=== PATIENT | female | born 1960 | race Caucasian/White ===

== ENCOUNTER 2023-11-05 14:18 | Inpatient (IN) | payer BC, SELFPAY ==
[2023-11-05] VITALS (10 sets, daily range): BP systolic 102–133; BP diastolic 56–77
--- NOTE | 2023-11-05 12:57 | ED.GENMED ---
History of Present Illness
<Kamille Yeh PA-C - Last Filed: 11/05/23 15:10>
General
Chief Complaint: Abnormal Lab Value
Source: patient
Exam Limitations: none
Time Seen by Provider: 11/05/23 12:45
Nursing documentation reviewed up to this point in time: agreed with
Travel History
Have you had any contact with someone who has COVID-19?: No
Do you have any symptoms of coronavirus? Fever > 100 degrees, chills, cough, shortness of breath, sore throat, loss of taste or smell, muscle aches, or headache?: No
History of Present Illness
History of Present Illness:
Patient is a 63-year-old female w/ history endometriosis s/p hysterectomy presenting to the emergency department for evaluation of dizziness and shortness of breath and found to be anemic on outpatient lab work. Patient reports approximately 2
weeks of dizziness, exertional shortness of breath, fatigue. She was seen by her primary care provider yesterday who ordered outpatient lab work. She was called today with results that her hemoglobin was 6.5 and she needed to go to the emergency
department. She does report some mild intermittent chest pain over the past few week with no clear exertional or pleuritic component patient denies any blood in her stool, melena, vaginal bleeding, or blood in urine. Patient denies any fever,
chills, recent illnesses/viruses. She denies any recent changes in bowel movements.
Patient does report a history of anemia requiring iron infusion many years ago due to stage IV endometriosis which she has since had a hysterectomy.
Phy Exam
<Kamille Yeh PA-C - Last Filed: 11/05/23 15:10>
Physical Exam
Physical Exam:
Vitals: Patient's vital signs are stable
General: Patient is well appearing, no acute distress
Skin: Warm and dry, no rashes or lesions
Head: Normocephalic, atraumatic
Eyes: Sclera nonicteric. EOMs intact. No nystagmus. Pale conjunctival
Throat: Protecting airway. Uvula midline
Neck: Normal ROM, no cervical spine tenderness, no meningismus
Cardiac: Regular rate and rhythm, no murmurs.
Pulm: Normal respiratory effort, no wheezes, rales, rhonchi heard on exam.
Abdomen: No abdominal tenderness.
Rectal: No stool in vault
Extremities: No evidence of cyanosis or edema. Good distal pulses
Neuro: AAOx3. CN II-XII intact. No focal neurologic deficits.
Psychiatric: Normal affect.
Course
<Kamille Yeh PA-C - Last Filed: 11/05/23 15:10>
Orders/Labs/Results
Orders:
Orders
11/05/23 12:58
Electrocardiogram (*1) Urgent
Reason for Study: Chest Pain
EKG- Treatment ONCE
11/05/23 13:05
* Blood Bank Products Urgent
Blood Bank Products: *Packed RBC Leuko(PRBC's)
Quantity: 2
Transfuse Today: Yes
Reason: Anemia
11/05/23 13:07
Type+Screen Urgent
Complete Blood Count/With Diff Urgent
Comprehensive Metabolic Panel Urgent
Folate Urgent
Comment: ADD ON
Iron Urgent
Total Iron Binding Urgent
Troponin I Urgent
Vitamin B12 Urgent
Comment: ADD ON
11/05/23 13:37
Add On- LAB Routine
Tests Added?: B12, folate level
11/05/23 13:53
Ferritin Urgent
11/05/23 13:57
Admit/Transfer Patient As Directed
Co-Sign Provider:
Level of Care: Inpatient admission
Assign to:: Medical/Surgical
Physician / Group: verena monsivais
Diagnosis: anemia
Reason for Hospitalization: anemia
Expected length of stay greater than two midnights?: Yes
ELOS- Estimated Length of Stay in days: 3
I certify the patient meets the requirements for IP care: Yes
GASTROINTESTINAL CONSULT Routine
Consulting Provider: Gladis Moser
Was physician already notified: Yes
11/05/23 13:59
Code Status As Directed
Resuscitation Status: Full Code
11/05/23 14:12
Pantoprazole [Protonix IV] 40 mg IV BID
Abnormal Lab Results
11/05/23
13:07
RBC 2.73 L 10^6/uL
(4.20-5.40)
Hgb 6.4 L* g/dL
(12.0-16.0)
Hct 21.9 L %
(37.0-47.0)
MCV 80.2 L fL
(81.0-99.0)
MCH 23.4 L pg
(27.0-31.0)
MCHC 29.2 L g/dL
(33.0-37.0)
RDW 16.4 H %
(11.5-14.5)
Plt Count 416 H 10^3/uL
(130-400)
BUN 26 H mg/dl
(7-17)
Iron 24 L ug/dl
(37-170)
TIBC 505 H ug/dl
(265-497)
% Saturation 4 L %
(20-50)
Crossmatch IS Only See Detail
11/05/23 13:07
11/05/23 13:07
Vital Signs
Initial and Last Documented VS:
Initial Vital Signs
Temp Pulse Resp BP Pulse Ox
98.2 F 76 16 117/63 98
11/05/23 12:30 11/05/23 12:30 11/05/23 12:30 11/05/23 12:30 11/05/23 12:30
Last Documented Vital Signs
Temp Pulse Resp BP Pulse Ox
98.2 F 70 16 122/76 98
11/05/23 12:30 11/05/23 15:00 11/05/23 15:00 11/05/23 13:00 11/05/23 13:00
<Harlan Pittman MD - Last Filed: 11/05/23 13:48>
Orders/Labs/Results
Orders:
Orders
11/05/23 12:58
Electrocardiogram (*1) Urgent
Reason for Study: Chest Pain
EKG- Treatment ONCE
11/05/23 13:05
* Blood Bank Products Urgent
Blood Bank Products: *Packed RBC Leuko(PRBC's)
Quantity: 2
Transfuse Today: Yes
Reason: Anemia
11/05/23 13:07
Type+Screen Urgent
Complete Blood Count/With Diff Urgent
Comprehensive Metabolic Panel Urgent
Folate Urgent
Comment: ADD ON
Iron Urgent
Total Iron Binding Urgent
Troponin I Urgent
Vitamin B12 Urgent
Comment: ADD ON
11/05/23 13:37
Add On- LAB Routine
Tests Added?: B12, folate level
11/05/23 13:53
Ferritin Urgent
11/05/23 13:57
Admit/Transfer Patient As Directed
Co-Sign Provider:
Level of Care: Inpatient admission
Assign to:: Medical/Surgical
Physician / Group: verena monsivais
Diagnosis: anemia
Reason for Hospitalization: anemia
Expected length of stay greater than two midnights?: Yes
ELOS- Estimated Length of Stay in days: 3
I certify the patient meets the requirements for IP care: Yes
GASTROINTESTINAL CONSULT Routine
Consulting Provider: Gladis Moser
Was physician already notified: Yes
11/05/23 13:59
Code Status As Directed
Resuscitation Status: Full Code
11/05/23 14:12
Pantoprazole [Protonix IV] 40 mg IV BID
Abnormal Lab Results
11/05/23
13:07
RBC 2.73 L 10^6/uL
(4.20-5.40)
Hgb 6.4 L* g/dL
(12.0-16.0)
Hct 21.9 L %
(37.0-47.0)
MCV 80.2 L fL
(81.0-99.0)
MCH 23.4 L pg
(27.0-31.0)
MCHC 29.2 L g/dL
(33.0-37.0)
RDW 16.4 H %
(11.5-14.5)
Plt Count 416 H 10^3/uL
(130-400)
BUN 26 H mg/dl
(7-17)
Iron 24 L ug/dl
(37-170)
TIBC 505 H ug/dl
(265-497)
% Saturation 4 L %
(20-50)
Crossmatch IS Only See Detail
11/05/23 13:07
11/05/23 13:07
Vital Signs
Initial and Last Documented VS:
Initial Vital Signs
Temp Pulse Resp BP Pulse Ox
98.2 F 76 16 117/63 98
11/05/23 12:30 11/05/23 12:30 11/05/23 12:30 11/05/23 12:30 11/05/23 12:30
Last Documented Vital Signs
Temp Pulse Resp BP Pulse Ox
98.2 F 70 16 122/76 98
11/05/23 12:30 11/05/23 15:00 11/05/23 15:00 11/05/23 13:00 11/05/23 13:00
<Kamille Yeh PA-C - Last Filed: 11/05/23 15:10>
MDM/Problems Addressed
Differential Diagnosis Includes:
Not limited to: Iron deficiency anemia, folate/vitamin B12 deficiency, kidney disease, viral/infectious process, hemolysis, malignancy
MDM/Problems Addressed:
Patient is a 63 year old female with history as documented presenting for evaluation of dizziness and exertional shortness of breath in setting of severe anemia discovered on outpatient lab work performed yesterday. Hemoglobin of 6.5 yesterday per
call ahead by PCP. Patient denies any bleeding. No blood in stool, or black/tarry stools. Vital stable. Exam as above. Skin is somewhat pale, pale conjunctive noted bilaterally. Abdomen soft nontender. Rectal exam without any stool in vault.
Good distal pulses. Will order basic labs, type and screen, iron studies. Patient consented for blood transfusion. 2 units PRBCs ordered.
EKG shows normal sinus rhythm without any signs of ischemia.
Labs noted. Hemoglobin today of 6.4. Mild thrombocytosis likely reactive. WBC normal. MCV essentially normal. Iron studies pending no evidence of hemolysis on lab work. Kidney function normal. Will admit to hospitalist given severe
symptomatic anemia of unknown etiology. Discussed with hospitalist. Blood transfusion pending.
Chronic conditions affecting care:
N/A
Acute Exacerbation and/or Progression of Chronic Illness:
N/A
<Kamille Yeh PA-C - Last Filed: 11/05/23 15:10>
*Pulse Oximetry
Patient hypoxic: no
*EKG
Interpreted by ED Provider?: Yes
EKG Intrepretation Date: 11/05/23
Interpretation: normal
Comparison EKG: no comparison EKG present
Heart Rate: 54
Rate: bradycardiac
Rhythm: sinus
[place]: normal axis
Ischemia: no ischemia
*Puller Over Interpretation
Rate: normal
Interpretation: normal
Heart Rate: 62
Rhythm: sinus
*Critical Care Note
Total Time (30-74mins, 75-104mins- exclusive of procedures): Not Applicable
Data Reviewed
Source: patient, spouse and physician (PCP called ahead)
<Kamille Yeh PA-C - Last Filed: 11/05/23 15:10>
Patient Management
Discussion with other providers: Hospitalist
Escalation/DeEscalation of care consider admission/obs:
Admit
ED Attending Note
<Kamille Yeh PA-C - Last Filed: 11/05/23 15:10>
-
Portions of this chart may have been created with voice recognition software.� Occasional wrong word or��sound alike� substitutions may have occurred due to the inherent limitations of voice recognition software.
<Harlan Pittman MD - Last Filed: 11/05/23 13:48>
ED Attending Note
Patient seen and examined by attending physician: Yes
ED Attending Note:
HPI: 63-year-old female with past medical history of endometriosis status post hysterectomy who presents to the emergency room for evaluation of fatigue and shortness of breath that found to be anemic on outpatient lab work. Patient reports that
symptoms have been ongoing for the past 1 to 2 weeks. She reports that she feels exertional shortness of breath particularly when walking up steps. She reports she feels significant generalized fatigue. She reports occasional dizziness. She saw
her primary doctor as an outpatient and had blood work drawn yesterday that showed hemoglobin 6.5�this was decreased from baseline value of 13 in March 2023 she was referred to the emergency department for assessment. She denies any chest pain.
She has not had any bleeding�she is status post hysterectomy has not had any vaginal bleeding. She denies any black or bloody stools. She denies any other complaints. She says she did have issues with anemia when she was /going through
fertility treatment in the distant past.
ROS: Positive for shortness of breath, fatigue, dizziness; negative for chest pain, black stools, bloody stools, vaginal bleeding, hematuria
Physical exam:
General: Awake, alert, oriented x3; no acute distress
Head: Normocephalic, atraumatic
Eyes: Pale conjunctiva
Throat: Airway intact, handling secretions
Neck: Trachea midline, supple without meningismus
Lungs: Clear to auscultation bilaterally, no wheezing, rales, rhonchi
Heart: Regular rate and rhythm, no murmurs, gallops, or rubs
Abd: Soft, non distended, nontender
Rectal: PA performed rectal exam--no stool in the rectal vault
Neuro: No gross deficit
Skin: Somewhat pale, no rash
Extremities: Warm and well-perfused
Differential diagnosis: Symptomatic anemia�could be related to iron deficiency, nutritional deficiency, occult hemorrhage, hemolysis, cancer
Medical decision makin-year-old female presents for evaluation of fatigue and shortness of breath, found to be anemic. Hemoglobin dropped from 13 in March 2023 down to 6.5 on labs yesterday. Her vital signs are stable. Exam as above. No
obvious hemorrhage. We sent labs including a CBC which confirmed anemia with a hemoglobin of 6.4 slightly microcytic. Normal platelets and WBC. CMP slightly elevated BUN no other clinically significant abnormalities. Iron level low, waiting on
TIBC and ferritin. Patient is symptomatic with hemoglobin below 7 with plan to transfuse. Patient consented and consent filed in medical record. Will admit for further workup of her anemia and trending of her hemoglobin given significant drop.
Chronic conditions affecting care: N/A
Acute exacerbation or progression of chronic illness: N/A
History source: Patient, PCP who called ahead
Data reviewed: Outpatient lab work which patient had at bedside, prior labs from distant visits
Medications/testing considered: N/A
Social determinants of health: N/A
Discussion with other providers: Hospitalist
Discharge Plan
Departure
Patient Disposition: Admit
Date of Disposition: 11/05/23
Time of Disposition: 13:28
Presentation/result/management discussed w/ accepting MD/DO: Hospitalist
Discharge Problem:
Symptomatic anemia
Interventions
Interventions:
*Risk Screen - Suicide Last Done: 11/05/23 12:55
*General Assessment Last Done: 11/05/23 12:56
*Neglect/Abuse Screening Last Done: 11/05/23 12:55
ED- Fall Risk Assessment Last Done: 11/05/23 12:54
*ED COVID-19 Vaccine History Last Done: 11/05/23 12:55
*Nursing Disposition Last Done: 11/05/23 15:01
Discharge Date and Time
Discharge Date/Time: 11/05/23 15:02
[2023-11-05 13:19] LABS: % Basophils 0.9 % (0-2); % Immature Granulocytes 0.2 % (0-0.5); % Lymphocytes 32.9 % (20.5-51.1); % Monocytes 9.1 % (1.7-9.3); % Neutrophils 53.9 % (42.2-75.2); Absolute Basophils 0.1 10^3/uL (0-0.2); Absolute Eosinophils 0.2 10^3/uL (0-0.7); Absolute Lymphocytes 1.9 10^3/uL (1.2-3.4); Absolute Monocytes 0.5 10^3/uL (0.1-0.6); Absolute Neutrophils 3.1 10^3/uL (1.4-6.5); Hematocrit 21.9 % (37.0-47.0); Mean Corp Hgb Conc. 29.2 g/dL (33.0-37.0); Mean Corpuscular Hgb 23.4 pg (27.0-31.0); Mean Corpuscular Volume 80.2 fL (81.0-99.0); Mean Platelet Volume 9.9 fL (7.4-10.4); Nucleated Red Blood Cells % 0 %; Platelet Count 416 10^3/uL (130-400); Red Blood Cell Count 2.73 10^6/uL (4.20-5.40); Red Cell Dist. Width 16.4 % (11.5-14.5); White Blood Cell Count 5.7 10^3/uL (4.8-10.8)
[2023-11-05 13:25] LABS: Hemoglobin 6.4 g/dL (12.0-16.0)
[2023-11-05 13:30] LABS: ALT (SGPT) 33 U/L (0-35); AST (SGOT) 25 U/L (14-36); Albumin 4.2 g/dl (3.5-5.0); Alkaline Phosphatase 61 U/L (38-126); Blood Urea Nitrogen 26 mg/dl (7-17); Calcium 9.6 mg/dl (8.4-10.2); Carbon Dioxide 28 mmol/L (22-30); Chloride 102 mmol/L (98-107); Glucose 92 mg/dl (70-99); Iron 24 ug/dl (37-170); Potassium 4.5 mmol/L (3.5-5.1); Sodium 137 mmol/L (135-145); Total Bilirubin 0.3 mg/dl (0.2-1.3); Total Protein 6.6 g/dl (6.3-8.2); eGFR > 60.00
--- NOTE | 2023-11-05 13:40 | HPS.HSE ---
Family Physician
-
Family Physician: Hood De La Cruz
Chief Complaint
-
Short of breath vertigo
Chest pain
History of Present Illness
63-year-old with past medical history for BPPV, stage IV endometriosis, diverticulosis presented to us with short of breath with light activity, dizziness, chest heaviness for past few weeks. Patient was evaluated by PCP she had an blood work done
as an outpatient. Her hemoglobin was 6.5. Denied headache or syncopal episode. Patient denied any abdominal pain, nausea, vomiting, diarrhea. Denied dysuria hematuria. Patient denied bloody or dark tarry stools.
On arrival hemoglobin of 6.5. Patient was ordered 2 units of blood. Admitting for further management
Medical History
Past Medical History
Past Medical History: Reports Other
Additional Past Medical History:
BPPV
Stage IV endometriosis
Diverticulosis
Past Surgical History: Reports Other
Additional Past Surgical History:
Hysterectomy
Hernia repair
Social History
Tobacco: Former Smoker
Alcohol: None
Drug: None
Personal:
Living: With Family
Employment: Employed
Family History
Family History: Not pertinent
Allergies / Home Medications
Allergies reflects when Allergies were last updated in [employer].
Home Medications with original date entered in [employer]
Allergy/Medication List:
Allergies
Allergy/AdvReac Type Severity Reaction Status Date / Time
codeine Allergy Mild Nausea / Verified 11/05/23 12:30
Vomiting
oil based medications Allergy Rash Uncoded 11/05/23 12:30
Review of Systems
-
Constitutional: Reports Fatigue
EENT: Reports No Symptoms
Respiratory: Reports Trouble Breathing
Cardiac: Reports Chest Pain
Abdomen/GI: Reports No Symptoms
: Reports No Symptoms
Musculoskeletal: Reports No Symptoms
Skin: Reports No Symptoms
Neurological: Reports Dizzy
Endocrine: Reports No Symptoms
Hematologic/Lymphatic: Reports No Symptoms
Psych: Reports No Symptoms
Physical Exam
Vital Signs
Vital Signs
Temp Pulse Resp BP Pulse Ox
98.2 F 76 16 122/76 98
11/05/23 12:30 11/05/23 12:30 11/05/23 12:30 11/05/23 13:00 11/05/23 13:00
Physical Exam
General: Well Developed, Well Nourished and No Apparent Distress
HEENT: NormoCephalic, Moist mucous membranes and Atraumatic
Respiratory: Clear
Cardiac: S1/S2 and Regular Rhythm; No Murmur or Rub
GI: Soft, Non Tender, Non Distended and Normal Bowel Sounds; No Organomegaly
Rectal: Deferred by Provider
Musculoskeletal: No Clubbing, No Cyanosis and No Edema
Skin: No Rash
Neuro: AO x 3 and Nonfocal/grossly intact
Psych: Calm
Laboratory Results
-
11/05/23 13:07
11/05/23 13:07
Laboratory Results
Total Bilirubin 0.3 mg/dl (0.2-1.3) 11/05/23 13:07
AST 25 U/L (14-36) 11/05/23 13:07
ALT 33 U/L (0-35) 11/05/23 13:07
Alkaline Phosphatase 61 U/L (38-126) 11/05/23 13:07
Data Reviewed
-
Lab Data: Labs Reviewed by me
Impression/Plan
-
#symptomatic anemia
-hgb 6.4
-2 units ordered
-iron panel pending
-no occult bleeding
-continue to monitor cbc in am
-iv PPI bid
-Gi consulted
#hxt of BPPV
#hxt of diverticulosis
#hxt of endometriosis
-s/p hysterectomy
# DVT prophylaxis
-SCD
# CODE STATUS
-Full code
[2023-11-05 13:41] LABS: Percent Saturation 4 % (20-50); Total Iron Binding Capacity 505 ug/dl (265-497)
[2023-11-05 13:43] LABS: Troponin I < 0.012 ng/ml
--- NOTE | 2023-11-05 14:13 | W.PN.UPDATE ---
Update Note
Progress Note Update
HPI: 63-year-old with past medical history for BPPV, stage IV endometriosis s/p hysterectomy, diverticulosis; presented with subacute short of breath and dizziness for several weeks. Patient was evaluated by PCP and was sent to the ED due to low
Hgb. Her hemoglobin in the ED was noted to be at 6.4. She denies to overt massive GIB. She admitted to taking NSAIDs previously due to tendinitis, however she has not been on NSAID for a while. She denies to any anticoagulation/antiplatelet or
recent NSAID use.
Patient denied to abdominal pain, nausea, vomiting, diarrhea or other symptoms.
2 units PRBC ordered.
A/P:
# symptomatic anemia
hgb 6.4 on admission, 2 units PRBC ordered, follow Hgb
Follow iron panel, B12, folate level
cont IV PPI BID
GI CS
# h/o BPPV
# h/o diverticulosis
# h/o endometriosis s/p hysterectomy
DVT prophylaxis-SCD
CODE STATUS-Full code
[2023-11-05] MEDS: NSS (PRESERVATIVE FREE) 10 ML IV ×2 (14:35→20:39)
[2023-11-05] MEDS: PROTONIX IV 40 MG IV ×2 (14:35→20:39)
--- NOTE | 2023-11-05 14:43 | CON.GI ---
Consultation
-
Date/Time Consultation Requested: 11/05/23
Date/Time Consultation Performed: 11/05/23
Requesting Provider: Amanda Daily
Performing Provider: Joya England
Reason for Consultation: Anemia
Medical History
Chief Complaint / HPI
Chief Complaint: Symptomatic Anemia
History of Present Illness:
Barbara Sainz is a 63 y.o. female w/ pmhx stage IV endometriosis, BPPV, hx diverticulosis admitted with symptomatic anemia. She endorses dizziness/lightheadedness and chest discomfort for the last few weeks, seen by her PCP who performed
outpatient labs, at which time her hemloglobin was found to be 6.5, urged to come to the ER for blood transfusion and urgent evaluation. Hemoglobin was 13 in March 2023.She denies any nausea, vomiting, abdominal pain, change in bowel habits,
diarrhea, melena, hematochezia, or unintentional weight loss. She admits to heavy NSAID use back in April following an injury/tendinitis related to carrying her heavy dog. She was seen by Dr. Wheat ([facility]), set up for EGD/Colonoscopy, but
then stopped taking NSAIDs and her tendinitis improved, cancelled these procedures. Does not recall why both EGD and Colonoscopy scheduled. She also does not recall her symptoms at that time. She had a colonoscopy at the age of 50 for CRC screening,
reports having diverticulosis, no polyps, given a 10 year recall. She reports having a negative Cologuard 2 years ago and a negative FOBT last year. She does admit to history of anemia during /fertility treatment.
Labs: WBC 5.7, Hgb 6.4, MCV 80, Plt 416, BUN 26/Cr. 0.9, %iron sat 4, Iron 24, LFTs WNL, B12 WNL, Folate WNL
Past Medical History
Past Medical History: Other (Endometriosis, Diverticulosis, BPPV)
Past Surgical History: Other (Hysterectomy, Hernia repair)
Social History
Tobacco: Former Smoker
Alcohol: None
Drug: None
Personal:
Living: With Family
Employment: Employed
Family History
Family History: Reviewed & Not Pertinent
Allergies / Home Medications
Allergy/AdvReac Type Severity Reaction Status Date / Time
codeine Allergy Mild Nausea / Verified 11/05/23 12:30
Vomiting
oil based medications Allergy Rash Uncoded 11/05/23 12:30
�Medication �Instructions �Recorded
Lactobac no.2-Bifidobac no.1-S. 1 cap PO DAILY 11/05/23
thermo 112.5 billion cell capsule
(Visbiome)
Uc-Ii Collagen 40 mg PO QPM 11/05/23
acetaminophen 500 mg tablet 1,000 mg PO DAILYPRN PRN mild pain 11/05/23
(Tylenol Extra Strength)
acetaminophen-caffeine 500 mg-65 2 tab PO DAILYPRN PRN headache 11/05/23
mg tablet (Excedrin Tension
Headache)
cholecalciferol (vitamin D3) 2,200 unit PO DAILY 11/05/23
citalopram 40 mg tablet 40 mg PO DAILY 11/05/23
felodipine 5 mg tablet,extended 5 mg PO DAILY 11/05/23
release 24 hr
Review of Systems
-
History Source: Patient
All other systems: A 12 pt ROS was Negative except as stated above in HPI
Vital Signs
Temp Pulse Resp BP Pulse Ox
98.2 F 63 16 122/76 98
11/05/23 12:30 11/05/23 14:00 11/05/23 14:00 11/05/23 13:00 11/05/23 13:00
Physical Exam
Exam
General: Well Developed and Well Nourished
HEENT: Normocephalic and Moist Mucous Membranes
Respiratory: Clear and Non Labored Respirations
Cardiac: S1/S2 and Regular Rhythm
GI: Soft, Non Tender and Non Distended
Rectal: Other (No stool in vault)
Skin: Warm and Dry
Results
WBC 5.7 10^3/uL (4.8-10.8) 11/05/23 13:07
Hgb 6.4 g/dL (12.0-16.0) L* 11/05/23 13:07
Hct 21.9 % (37.0-47.0) L 11/05/23 13:07
MCV 80.2 fL (81.0-99.0) L 11/05/23 13:07
Plt Count 416 10^3/uL (130-400) H 11/05/23 13:07
Absolute Neuts (auto) 3.1 10^3/uL (1.4-6.5) 11/05/23 13:07
Sodium 137 mmol/L (135-145) 11/05/23 13:07
Potassium 4.5 mmol/L (3.5-5.1) 11/05/23 13:07
Chloride 102 mmol/L (98-107) 11/05/23 13:07
Carbon Dioxide 28 mmol/L (22-30) 11/05/23 13:07
BUN 26 mg/dl (7-17) H 11/05/23 13:07
Creatinine 0.9 mg/dL (0.6-1.0) 11/05/23 13:07
Calcium 9.6 mg/dl (8.4-10.2) 11/05/23 13:07
Total Bilirubin 0.3 mg/dl (0.2-1.3) 11/05/23 13:07
AST 25 U/L (14-36) 11/05/23 13:07
ALT 33 U/L (0-35) 11/05/23 13:07
Alkaline Phosphatase 61 U/L (38-126) 11/05/23 13:07
Diagnostic Image Results:
Prior GI Procedures:
EGD:
Colonoscopy:
Assessment / Plan
-
63 y.o. female w/ pmhx stage IV endometriosis, BPPV, hx diverticulosis admitted with symptomatic anemia.
Symptomatic Anemia
-Hemoglobin 6.5, Normocytic (MCV 80)
-Elevated BUN of 26, normal Cr.
-Prior NSAID use, but stopped many months ago
-No prior records, reports noninvasive stool testing recently, normal colon (aside from diverticulosis at age 50)
-no stool in rectal vault on CARLOS
-Iron studies show % saturation of 4, recommend IV iron while in hospital, transition to PO iron on discharge
-check celiac serologies
-PPI
-If adequate correction following 2 units of blood transfusion, will arrange for expedited outpatient EGD/Colonoscopy, which patient prefers
-if transfusion-dependent or signs of active GI bleeding, will plan for inpatient evaluation
Data Reviewed
-
Time spent with patient (in minutes): Labs reviewed by me
-
-
Thank you for consultation and allowing me to participate in the patient's care. Please call the patient registration supervisor GI physician during the after hours with any questions or concerns.
[2023-11-05 15:04] LABS: Ferritin 3.9 ng/ml (11.1-264.0)
--- NOTE | 2023-11-05 15:19 | PTCARENOTE ---
Pt received from ED. AAOx3. Ambilated from stretcher to bed independently. VSS. Hgb 6.4, 2 units PRBCs ordered. Pt without complaint at this time.
[2023-11-05] MEDS: NSS (PRESERVATIVE FREE) IV (15:46)
[2023-11-05 16:04] LABS: Folate 6.1 ng/ml (2.76-20); Vitamin B12 741 pg/ml (239-931)
--- NOTE | 2023-11-05 21:01 | PTCARENOTE ---
first unit of blood transfused without complication. 2nd unit now infusing as ordered. Pt denies any complaints. Vital signs stable. Will continue to monitor.
--- NOTE | 2023-11-05 23:32 | PTCARENOTE ---
2nd unit of blood transfused without complication. Pt denies any complaints. vital signs stable. Will continue to monitor.
--- NOTE | 2023-11-06 03:04 | DOWNTIME ---
There was a [employer] Client Stopper Setter Downtime on 11/05/2023 from 0100 to 11/06/2023 at 0300. Downtime documentation of patient's care, including medication administrations, has been reconciled in the electronic record per guidelines. Refer to the
patient's paper chart under the miscellaneous tab to see printed paper medication records and downtime forms.
[2023-11-06 06:04] LABS: Hematocrit 26.9 % (37.0-47.0); Mean Corp Hgb Conc. 32.3 g/dL (33.0-37.0); Mean Corpuscular Hgb 25.7 pg (27.0-31.0); Mean Corpuscular Volume 79.6 fL (81.0-99.0); Platelet Count 380 10^3/uL (130-400); Red Blood Cell Count 3.38 10^6/uL (4.20-5.40); Red Cell Dist. Width 16.2 % (11.5-14.5); White Blood Cell Count 5.4 10^3/uL (4.8-10.8)
[2023-11-06 06:26] LABS: Blood Urea Nitrogen 25 mg/dl (7-17); Calcium 9.6 mg/dl (8.4-10.2); Carbon Dioxide 28 mmol/L (22-30); Chloride 106 mmol/L (98-107); Estimated Creatinine Clearance 61 ml/min; Glucose 101 mg/dl (70-99); Potassium 4.9 mmol/L (3.5-5.1); Sodium 140 mmol/L (135-145); eGFR > 60.00
[2023-11-06 06:34] LABS: Hemoglobin 8.7 g/dL (12.0-16.0)
[2023-11-06 07:00] VITALS: BP 129/89
--- NOTE | 2023-11-06 07:15 | W.PN.GI.CBS2 ---
Today's Communication / Plan
-
Give dose of IV iron. Okay for discharge with GI follow-up.
Assessment / Plan
-
63 y.o. female w/ pmhx stage IV endometriosis, BPPV, hx diverticulosis admitted with symptomatic anemia.
Symptomatic Anemia
-Hemoglobin 6.5, Normocytic (MCV 80) --> 8.7 s/p 2 units PRBC
-Prior NSAID use, but stopped many months ago
-No prior records, reports noninvasive stool testing recently, normal colon (aside from diverticulosis at age 50)
-no stool in rectal vault on CARLOS
-Iron studies show % saturation of 4, recommend IV iron while in hospital--> give 1 dose IV now, recommend daily PO upon discharge
-celiac serologies obtained, pending will add on TSH
-PPI, will send Rx to pharmacy
-offered inpatient evaluation, however, patient prefers to schedule outpatient. Will arrange for expedited appointment for bidirectional endoscopy and notify patient once scheduled
Okay for discharge today from a GI perspective with close outpatient follow-up
Subjective
Subjective
Date of Service: November 06, 2023
Patient seen in follow-up this morning, no overnight events. She received 2 units of PRBC with adequate response, hemoglobin 8.7 this morning. BUN 25/Cr. 1.0. She prefers to perform endoscopic evaluation as outpatient.
Objective
Data Reviewed
Laboratory Data:
Laboratory Results
11/06/23 05:33
11/06/23 05:33
Laboratory Results
Total Bilirubin 0.3 mg/dl (0.2-1.3) 11/05/23 13:07
AST 25 U/L (14-36) 11/05/23 13:07
ALT 33 U/L (0-35) 11/05/23 13:07
Alkaline Phosphatase 61 U/L (38-126) 11/05/23 13:07
Vital Signs and I&O:
Vital Signs
Temp Pulse Resp BP Pulse Ox
98.0 F 63 18 108/66 98
11/05/23 23:31 11/05/23 23:31 11/05/23 23:31 11/05/23 23:31 11/05/23 23:31
I&O
11/05/23 11/06/23 11/07/23
06:59 06:59 06:59
Intake Total 1505 / 1505
Balance 1505 / 1505
Physical Exam
Physical Exam
GENERAL: In no acute distress, appears comfortable
HEENT: no scleral icterus, mucous membranes moist, OP clear
RESP: Nonlabored respirations, clear to auscultation, b/l
CV: RRR, S1/S2
ABDOMEN: +BS; soft, non-tender and non-distended; no rebound or guarding
EXT: No LE edema, b/l
SKIN: Dry, warm
NEURO: AAOx3
[2023-11-06] MEDS: FERRLECIT 110 MG IV (08:13)
[2023-11-06] MEDS: NSS (PRESERVATIVE FREE) 10 ML IV (08:14)
[2023-11-06] MEDS: PROTONIX IV 40 MG IV (08:14)
[2023-11-06 08:58] LABS: TSH 1.93 uIU/ml (0.47-4.68)
--- NOTE | 2023-11-06 10:33 | W.PN.HOSP.TC ---
Addendum entered and electronically signed by Meredith Gore MD 11/06/23 12:29:
total DC time 35 min
Original Note:
Today's Communication/Plan
-
DC home today
Assessment / Plan
Assessment / Plan
HPI: 63-year-old with past medical history for BPPV, stage IV endometriosis s/p hysterectomy, diverticulosis; presented with subacute short of breath and dizziness for several weeks. Patient was evaluated by PCP and was sent to the ED due to low
Hgb. Her hemoglobin in the ED was noted to be at 6.4. She denies to overt massive GIB. She admitted to taking NSAIDs previously due to tendinitis, however she has not been on NSAID for a while. She denies to any anticoagulation/antiplatelet or
recent NSAID use.
Patient denied to abdominal pain, nausea, vomiting, diarrhea or other symptoms.
2 units PRBC ordered.
A/P:
# symptomatic anemia
hgb 6.4 on admission, s/p 2 units PRBC, Hgb responded appropriately to 8.7
Ferritin level low, indicating iron deficiency, s/p IV iron and will DC on PO iron supplement
B12, folate WNL
Cont PPI BID
GI on board, will help with expediting outpt appointment for endoscopy eval
# h/o BPPV
# h/o diverticulosis
# h/o endometriosis s/p hysterectomy
DVT prophylaxis-SCD
CODE STATUS-Full code
[facility] GI, cleared pt for discharge
Anticipated Discharge: Today
Subjective/Interval History
-
Date of Service: November 06, 2023
Objective Data
-
Labs:
Laboratory Results
11/06/23
05:33
WBC 5.4
Hgb 8.7 L D
Hct 26.9 L
Plt Count 380
Sodium 140
Potassium 4.9
Chloride 106
Carbon Dioxide 28
BUN 25 H
Creatinine 1.0
Glucose 101 H
Calcium 9.6
Vital Signs:
Vital Signs
Temp Pulse Resp BP Pulse Ox
36.6 C 74 16 129/89 98
11/06/23 07:00 11/06/23 07:00 11/06/23 07:00 11/06/23 07:00 11/06/23 07:00
I&O
11/05/23 11/06/23 11/07/23
06:59 06:59 06:59
Intake Total 1505 / 1505
Balance 1505 / 1505
Review of Systems
-
All other systems: Reviewed and negative
Physical Exam
-
General: Well Developed, Well Nourished, No Apparent Distress, Comfortable and Conversant; Negative Respiratory Distress
HEENT: Normocephalic, Atraumatic, Nose Appears Normal and Ears Appear Normal; Negative Oxygen
Respiratory: Clear to Auscultation and Non Labored Respirations; Negative Accessory Resp Muscle Use
Cardiac: Regular Rhythm and S1/S2
GI: Soft, Nontender, Nondistended and Normal Bowel Sounds
Skin: Warm and Dry
Neuro: Awake, Alert, Oriented and AO x 3
Psych: Calm and Intact Judgement/Insight
Data Reviewed
-
Labs: Labs Reviewed by me, Discussed with Patient and Discussed with Family
--- NOTE | 2023-11-06 10:41 | CM ---
Met with pt at bedside
Pt lives in a 2 story home with her
Independent, works FT, driving
Has ride at d/c
DME - none
SNF/HH - denies past history
PCP - Dr Selwyn De La Cruz
Pharm - [facility]
CM will follow for d/c needs
Plan - anticipate home no needs
[2023-11-06 11:00] VITALS: BP 126/82
--- NOTE | 2023-11-06 12:00 | W.DCSUMMARY ---
Discharge Summary
Discharge Data
Date of Admission: 11/05/23
Date of Discharge: 11/06/23
-
Pending Results: No
Hospital Course
Principal Diagnosis:
Symptomatic anemia with iron deficiency anemia
Chronic Diagnoses:�
Benign paroxysmal positional vertigo
History of diverticulosis
History of endometriosis status post hysterectomy
Consultations:�
Gastroenterology
Procedures:�
None
Clinical course:�
This is a 63-year-old female with past medical history as stated above, who presented with subacute short of breath and dizziness for several weeks. Patient was evaluated by her PCP and was sent to the ED due to low Hgb. She denied to overt massive
GIB. She admitted to taking NSAIDs previously due to tendinitis, however she has not been on NSAID for months.
Problem 1:
Symptomatic anemia with iron deficiency anemia.
Patient's hemoglobin was at 6.4 on admission. She received 2 unit PRBC transfusion with improved hemoglobin to 8.7 on the day of discharge.
Patient was eager to return home, hence declined inpatient workup.
She was seen by GI who facilitated expedition of outpatient endoscopy evaluation.
Her ferritin level was very low at 3.9, and patient received IV iron while in the hospital. She was discharged with oral iron supplementation to continue going forward.
She can continue Protonix 40 mg twice daily until further directed by GI.
As for the rest of her medical problems, they were stable during her hospital stay.
Discharge Plan
-
Patient Disposition: Home (Routine Discharge)
Discharge Diagnosis/Procedures: symptomatic anemia
Condition: Good
Diet: As tolerated
Activity: As tolerated
Driving Restrictions: As prior to admission
Blood Work: CBC in 1 week, result to PCP
Activity Restrictions/Additional Instructions:
Follow up with GI for endoscopy eval
Referrals:
Hood De La Cruz MD [Family Provider] - in less than 1 week
Additional Discharge Medication Instructions: Continue Protonix 40 mg twice daily until further directed by your GI doctor
Continue to take iron supplement
Prescriptions:
New
pantoprazole [Protonix] 40 mg tablet,delayed release (DR/EC)
40 mg PO BID Qty: 60 0RF
ferrous sulfate 325 mg (65 mg iron) tablet
325 mg PO DAILY Qty: 30 0RF
Continued
citalopram 40 mg Tablet
40 mg PO DAILY
felodipine 5 mg Tablet Extended Release 24 Hr
5 mg PO DAILY
acetaminophen [Tylenol Extra Strength] 500 mg Tablet
1,000 mg PO DAILYPRN PRN (Reason: mild pain)
Visbiome 112.5 billion cell Capsule
1 cap PO DAILY
Uc-Ii Collagen 40 mg capsule
40 mg PO QPM
Patient Comments:
11/05/2023, [employer]ins UC-II w/ Undenatured Type II Collagen.
cholecalciferol (vitamin D3) 55 mcg capsule
2,200 unit PO DAILY
Held
Excedrin Tension Headache 500-65 mg Tablet
2 tab PO DAILYPRN PRN (Reason: headache)
Hold Instructions: Resume on 11/13/23. until further directed by your GI doctor (Excedrin contains aspirin)
Discharge Orders:
Discharge Patient (As Directed); Ordered 11/06/23
Ordered By: Meredith Gore
Discharge Date and Time
Discharge Date/Time: 11/06/23 12:16
Print Language: BHUTANESE
[2023-11-06 15:27] LABS: tTG IgG Antibody 8.5 EU/ml (0-19)
[2023-11-07 05:52] LABS: IgA 58 mg/dl (70-400)
[2023-11-08 11:30] LABS: Endomysial IgA Antibody Titer <1:10 (<1:10)
== END 2023-11-06 12:16 | disposition home or self-care (01) | DRG 812 ==
LOC: 3 WEST ACU 14:18
PROVIDERS: Physician Assistant; Registered Nurse; ADMITTING PHYSICIAN Internal Medicine; EMERGENCY PHYSICIAN Emergency Medicine; FAMILY PHYSICIAN Family Medicine; OTHER PHYSICIAN Internal Medicine
PROC: 30233N1 Transfusion of Nonautologous Red Blood Cells into Peripheral Vein, Percutaneous Approach (ICD-10-PCS; 2023-11-05)
DX: D50.9 Iron deficiency anemia, unspecified (principal); Z87.891 Personal history of nicotine dependence; H81.10 Benign paroxysmal vertigo, unspecified ear
CPT/HCPCS: 80048; 80053; 82607; 82728; 82746; 82784; 83516; 83540; 83550; 84443; 84484; 85025; 85027; 86231; 86850; 86900; 86901; 86920; 93005; 99285; J2916; P9016

== ENCOUNTER → 2023-11-19 06:24 | Day surgery (SDC) | payer BC, SELFPAY | LOC: GI 06:24 | PROVIDERS: ATTENDING PHYSICIAN Internal Medicine; FAMILY PHYSICIAN Family Medicine | DX: Z12.11 Encounter for screening for malignant neoplasm of colon (principal); D50.9 Iron deficiency anemia, unspecified; K64.8 Other hemorrhoids; K57.30 Diverticulosis of large intestine without perforation or abscess without bleeding; K22.89 Other specified disease of esophagus; K44.9 Diaphragmatic hernia without obstruction or gangrene; K25.9 Gastric ulcer, unspecified as acute or chronic, without hemorrhage or perforation; K29.70 Gastritis, unspecified, without bleeding; K31.89 Other diseases of stomach and duodenum; K29.50 Unspecified chronic gastritis without bleeding | CPT/HCPCS: 43239; G0121; 88305; 88342 ==

== ENCOUNTER → 2024-02-17 11:42 | Outpatient (REF) | payer BC, SELFPAY | LOC: HWRAD 11:42 | PROVIDERS: ATTENDING PHYSICIAN Family Medicine | DX: R76.11 Nonspecific reaction to tuberculin skin test without active tuberculosis (principal) | CPT/HCPCS: 71046 ==

== ENCOUNTER 2024-03-07 17:38 | Inpatient (IN) | payer OTHER, SELFPAY ==
[2024-03-07 15:06] VITALS: BMI 27.4
[2024-03-07 15:07] VITALS: BP 123/85
--- NOTE | 2024-03-07 15:33 | ED.GENMED ---
History of Present Illness
General
Chief Complaint: Overdose Intentional
Source: patient and spouse
Exam Limitations: none
Time Seen by Provider: 03/07/24 15:09
Nursing documentation reviewed up to this point in time: agreed with
History of Present Illness
History of Present Illness:
The patient is a 63-year-old female with a past medical history of anxiety and depression who comes in by ambulance after she admitted to her that she had intentionally taken extra medication 'to go to sleep'. Patient reports that she took
additional doses of Celexa, alprazolam, as well as her 's temazepam. She is unable to quantify how many pills she took of each. She reports she has been under tremendous stress lately due to the recent of her dog and loss of her job.
Patient reports feeling helpless and hopeless. Patient denies any injury. She denies drugs, alcohol and marijuana. She reports she has never tried to hurt herself before. Patient admits to feeling drowsy. Patient reports that she took the pills
at least 2 to 3 hours ago. She denies nausea and vomiting. She denies taking any other medications, including [id number].
Past History
Past History
ED Past Medical History: Psychiatric (Anxiety, depression)
ED Past Surgical History: Appendectomy, Gynecological and Other (Rhinoplasty)
Social History
Tobacco: Non-smoker
Alcohol: None
Drug: None
Personal:
Living: with family
Employment: Not employed (Recently laid off)
Family History
Family History: Other
Review of Systems
Review of Systems
Allergies reviewed?: Yes
All Other Systems: ROS reviewed and negative except as documented in HPI and ROS
Constitutional: Reports fatigue and sleep disturbance
EENT: Reports no symptoms
Respiratory: Reports no symptoms
Cardiac: Reports no symptoms
ABD/GI: Reports no symptoms
: Reports no symptoms
Musculoskeletal: Reports no symptoms
Skin: Reports no symptoms
Neurological: Reports no symptoms
Endocrine: Reports no symptoms
Hematologic/Lymphatic: Reports no symptoms
Psychiatric: Reports depression, anxiety and suicidal
Phy Exam
Physical Exam
Physical Exam:
Physical Exam
General: Extremely drowsy but easily awakens. Appears comfortable
Neck: supple. no meningeal signs. normal psoterior pharynx
Heart: s1/s2 regular rate and rhythm, no murmur. equal radial pulses.
Lungs: no acute respiratory distress. clear bilaterally
Abdomen: normal bowel sounds. not tender. no CVAT
Neuro: alert and oriented. no focal neurological deficits
Skin: no rash
Psychiatric: well kept. interactive and cooperative
Extremities: no edema. no calf tenderness. negative homans. good distal pulses
Course
Orders/Labs/Results
Orders:
Orders
03/07/24 15:17
1:1 Observation - Suicide/ Violent Behavior As Directed
Crisis Consult Urgent
Reason for Consult: intentional overdose.
03/07/24 15:26
Alcohol Urgent
CMP [Comprehensive Metabolic Panel] Urgent
Complete Blood Count/With Diff Urgent
Salicylate Urgent
Tylenol [Acetaminophen] Urgent
03/07/24 15:31
Urine Drug Abuse Screen Urgent
Date Specimen was Collected: 03/07/24
Time Specimen was Collected: 15:33
03/07/24 15:48
Crisis Consult Urgent
Reason for Consult: intentional overdose
03/07/24 15:49
PSYCHIATRY CONSULT Urgent
Consulting Provider: Ame Byrd
Was physician already notified: Yes
Reason for consult: intentional overdose, anxiety, depression
03/07/24 17:07
EKG [Electrocardiogram (*1)] Routine
Reason for Study: QTc Monitoring
03/08/24 06:00
EKG [Electrocardiogram (*1)] IN AM
Reason for Study: QTc Monitoring
Abnormal Lab Results
03/07/24
15:26
RDW 15.9 H %
(11.5-14.5)
Monocytes % 9.7 H %
(1.7-9.3)
Carbon Dioxide 32 H mmol/L
(22-30)
BUN 19 H mg/dl
(7-17)
Total Protein 6.2 L g/dl
(6.3-8.2)
Salicylates < 1.0 L mg/dl
(2.0-20.0)
Acetaminophen < 10 L ug/ml
(10-30)
03/07/24 15:26
03/07/24 15:26
Vital Signs
Initial and Last Documented VS:
Initial Vital Signs
Pulse Ox
96
03/07/24 15:06
Last Documented Vital Signs
Pulse Resp BP Pulse Ox
77 18 124/94 98
03/07/24 16:30 03/07/24 16:30 03/07/24 16:00 03/07/24 16:30
MDM/Problems Addressed
Differential Diagnosis Includes:
Intentional overdose as a suicidal attempt, alcohol intoxication, THC use
MDM/Problems Addressed:
Patient presents with acute drowsiness due to intentional overdose
Chronic conditions affecting care: Psychiatric illness
Acute Exacerbation and/or Progression of Chronic Illness:
Patient is acutely depressed and anxious
Acute Exacerbation and/or Progression of Chronic Illness: Psychiatric illness
*Pulse Oximetry
Patient hypoxic: no
*EKG
Interpreted by ED Provider?: Yes
Interpretation: normal
Comparison EKG: no comparison EKG present
Rate: normal
Rhythm: sinus
[place]: normal axis
Interval: normal interval
QRS Pattern: normal QRS
Ischemia: no ischemia
*Certified Master Safecracker Interpretation
Rate: normal
Interpretation: normal
Rhythm: sinus
*Critical Care Note
Total Time (30-74mins, 75-104mins- exclusive of procedures): 40 minutes of critical ca
comment:
40 minutes of critical care given to the patient including frequent reassessments of her mental status, discussing case with hospitalist, log raft worker, psychiatry, the patient's as well as toxicology
Data Reviewed
Review of Other/Old Records Reveals: Discharge Summary (Hospitalist discharge summary reviewed from 2023 which showed patient was admitted for symptomatic anemia)
Source: patient and spouse
Patient Management
Social determinants of health affecting care: Living situation and Strong social support
Discussion with other providers: Other (Spoke to log raft worker. Notified Dr. Gramajo from psychiatry who agreed to see patient on consult tomorrow morning. Spoke to toxicology who recommended that the patient be monitored for 24 hours medically
to observe for any seizure activity or prolonged QT)
Escalation/DeEscalation of care consider admission/obs:
Patient is fully arousable but drowsy. She is calm and agreeable to medical and psychiatric care. Her , who is in a mental health profession for over 40 years, expresses that she has never done anything like this before. He feels very
strongly that he does not want her in inpatient psychiatric unit. He feels strongly that she needs a new antianxiety/antidepressant medication
ED Attending Note
-
Portions of this chart may have been created with voice recognition software.� Occasional wrong word or��sound alike� substitutions may have occurred due to the inherent limitations of voice recognition software.
Discharge Plan
Departure
Patient Disposition: Admit
Date of Disposition: 03/07/24
Time of Disposition: 16:25
Admit to: Telemetry
Presentation/result/management discussed w/ accepting MD/DO: Hospitalist
Patient with high blood pressure during this ER visit?: No
Condition: Fair
Covid-19: Not Applicable
Discharge Problem:
Intentional overdose
Prescriptions:
No Action
citalopram 40 mg Tablet
40 mg PO DAILY
felodipine 5 mg Tablet Extended Release 24 Hr
5 mg PO DAILY
pantoprazole [Protonix] 40 mg tablet,delayed release (DR/EC)
40 mg PO BID Qty: 60 0RF
alprazolam [Xanax] 0.25 mg Tablet
0.25 mg PO BIDPRN PRN (Reason: anixety)
ferrous sulfate 325 mg (65 mg iron) Tablet
325 mg PO DAILY
doxycycline hyclate 100 mg Capsule
100 mg PO BID
Patient Comments:
for 21 days starting on 02/19/24
Referrals:
Hood De La Cruz MD [Family Provider] -
Interventions
Interventions:
*Risk Screen - Suicide Last Done: 03/07/24 15:06
*General Assessment Last Done: 03/07/24 15:06
*Neglect/Abuse Screening Last Done: 03/07/24 15:06
ED- Fall Risk Assessment Last Done: 03/07/24 15:48
*ED COVID-19 Vaccine History Last Done: 03/07/24 15:06
ED- Cardiac Assessment Last Done: 03/07/24 15:06
ED- Neurological Assessment Last Done: 03/07/24 15:06
ED-Psychological Assessment Last Done: 03/07/24 15:48
ED- Pulmonary Assessment Last Done: 03/07/24 15:06
Discharge Date and Time
Print Language: KAZAKH
[2024-03-07 15:38] LABS: % Basophils 0.5 % (0-2); % Eosinophils 2.4 % (0-6); % Immature Granulocytes 0.3 % (0-0.5); % Lymphocytes 31.1 % (20.5-51.1); % Monocytes 9.7 % (1.7-9.3); Absolute Eosinophils 0.1 10^3/uL (0-0.7); Absolute Lymphocytes 1.9 10^3/uL (1.2-3.4); Absolute Monocytes 0.6 10^3/uL (0.1-0.6); Absolute Neutrophils 3.3 10^3/uL (1.4-6.5); Hematocrit 37.8 % (37.0-47.0); Hemoglobin 12.6 g/dL (12.0-16.0); Mean Corp Hgb Conc. 33.3 g/dL (33.0-37.0); Mean Corpuscular Hgb 28.3 pg (27.0-31.0); Mean Corpuscular Volume 84.9 fL (81.0-99.0); Mean Platelet Volume 9.6 fL (7.4-10.4); Nucleated Red Blood Cells % 0 %; Platelet Count 273 10^3/uL (130-400); Red Blood Cell Count 4.45 10^6/uL (4.20-5.40); Red Cell Dist. Width 15.9 % (11.5-14.5)
[2024-03-07 16:00] VITALS: BP 124/94
[2024-03-07 16:01] LABS: ALT (SGPT) 12 U/L (0-35); AST (SGOT) 17 U/L (14-36); Acetaminophen < 10 ug/ml (10-30); Alkaline Phosphatase 54 U/L (38-126); Blood Urea Nitrogen 19 mg/dl (7-17); Calcium 9.7 mg/dl (8.4-10.2); Carbon Dioxide 32 mmol/L (22-30); Chloride 99 mmol/L (98-107); Estimated Creatinine Clearance 54 ml/min; Glucose 89 mg/dl (70-99); Potassium 4.4 mmol/L (3.5-5.1); Salicylate < 1.0 mg/dl (2.0-20.0); Sodium 138 mmol/L (135-145); Total Bilirubin 0.5 mg/dl (0.2-1.3); Total Protein 6.2 g/dl (6.3-8.2); eGFR > 60.00
[2024-03-07 16:02] LABS: Alcohol None Detected
[2024-03-07 17:00] VITALS: BP 120/87
--- NOTE | 2024-03-07 17:07 | HPS.HSE ---
Family Physician
-
Family Physician: Hood De La Cruz
Chief Complaint
-
Intentional OD
History of Present Illness
63F HX anxiety/ depression on Xanax PRN, Citalopram BPPV, endometriosis [facility] for further evaluation of intentional OD of Xanax, Celexa, Tamazepam.
- Per patient : she took 3 pills of temazepam, 25 tab of 0.25mg Xanax & unknown quantity of Celexa
- She has been depressed since October 2023
- Reports compliance with Celexa
- First attempted suicide
- She still feeling very low
- Reports no regrets of intentional OD
- she is lethargic on arrival
Medical History
Past Medical History
Past Medical History: Reports Psychiatric (anxiety and depression ) and Other
Additional Past Medical History:
BPPV
Stage IV endometriosis
Diverticulosis
Past Surgical History: Reports Other
Additional Past Surgical History:
Hysterectomy
Hernia repair
Social History
Tobacco: Former Smoker
Alcohol: None
Drug: None
Personal:
Living: With Family
Employment: Employed
Family History
Family History: Not pertinent
Allergies / Home Medications
Allergies reflects when Allergies were last updated in [employer].
Home Medications with original date entered in [employer]
Allergy/Medication List:
Allergies
Allergy/AdvReac Type Severity Reaction Status Date / Time
codeine Allergy Mild Nausea / Verified 11/05/23 12:30
Vomiting
oil based medications Allergy Rash Uncoded 11/05/23 12:30
Home Medications
citalopram 40 mg tablet 40 mg PO DAILY Depression 11/05/23
felodipine 5 mg tablet,extended release 24 hr 5 mg PO DAILY Blood Pressure 11/05/23
pantoprazole 40 mg tablet,delayed release (Protonix) 40 mg PO BID #60 tabs 11/06/23
alprazolam 0.25 mg tablet (Xanax) 0.25 mg PO BIDPRN PRN anixety 03/07/24
doxycycline hyclate 100 mg capsule 100 mg PO BID 03/07/24
ferrous sulfate 325 mg (65 mg iron) tablet 325 mg PO DAILY 03/07/24
Review of Systems
-
Constitutional: Reports Other (lethargic on arrival )
EENT: Reports No Symptoms
Respiratory: Reports No Symptoms
Cardiac: Reports No Symptoms
Abdomen/GI: Reports No Symptoms
: Reports No Symptoms
Musculoskeletal: Reports No Symptoms
Skin: Reports No Symptoms
Neurological: Reports No Symptoms
Endocrine: Reports No Symptoms
Hematologic/Lymphatic: Reports No Symptoms
Psych: Reports Other (lethargix on arrival )
Physical Exam
Vital Signs
Vital Signs
Pulse Resp BP Pulse Ox
77 18 124/94 98
03/07/24 16:30 03/07/24 16:30 03/07/24 16:00 03/07/24 16:30
Physical Exam
General: Comfortable and Conversant
HEENT: NormoCephalic, Moist mucous membranes and Atraumatic
Respiratory: Clear
Cardiac: S1/S2 and Regular Rhythm; No Murmur or Rub
GI: Soft, Non Tender, Non Distended and Normal Bowel Sounds; No Organomegaly
Rectal: Deferred by Provider
Musculoskeletal: No Clubbing, No Cyanosis and No Edema
Skin: No Rash
Neuro: Nonfocal/grossly intact
Psych: Calm, Depressed and Other (flat affect ); No Agitated
Laboratory Results
-
03/07/24 15:26
03/07/24 15:26
Laboratory Results
Total Bilirubin 0.5 mg/dl (0.2-1.3) 03/07/24 15:26
AST 17 U/L (14-36) 03/07/24 15:26
ALT 12 U/L (0-35) 03/07/24 15:26
Alkaline Phosphatase 54 U/L (38-126) 03/07/24 15:26
Data Reviewed
-
Lab Data: Labs Reviewed by me
Old Records: Reviewed
Impression/Plan
-
Vital Signs
Pulse Resp BP Pulse Ox
77 18 124/94 98
03/07/24 16:30 03/07/24 16:30 03/07/24 16:00 03/07/24 16:30
03/07/24
15:26
WBC 6.0
Hgb 12.6
Data
Unremarkable CBC
Unremarkable CMP except mild azotemia
NEG ETOH
salicylates < 1
Acetaminophen < 10
Pending UDS
Pending EKG
Last hospitalist admission:
Date of Admission: 11/05/23 - Date of Discharge: 11/06/23
Principal Diagnosis: Symptomatic anemia with iron deficiency anemia
ASSESSMENT & PLAN
Intentional OD of unknown quantity of Xanax, Celexa, Temazepam: First attempted suicide by OD
Resolved Lethargy - transient toxic encephalopathy due to OD of AIRCRAFT STRESS ANALYST Meds
Hemodynamically stable
Of Note: - She has been depressed since October 2023, reports still feeling very low, reports no regrets of intentional OD, reports compliance with Celexa
- pending UDS
- EKG now and in AM for QTc
- Obs for for QTc monitoring
- Supportive care : IVF
- 1 to 1
- Crisis and Psych consulted upon admission by ER attd
Known HX; Inactive
HX BPPV
HX diverticulosis
HX endometriosis: s/p hysterectomy
DVT Px: LMWH
Code: Full
Obs TLM
[2024-03-07 18:16] VITALS: BMI 27.0
[2024-03-07 18:29] VITALS: BP 137/86
[2024-03-07] MEDS: LOVENOX 40 MG SC (18:30)
[2024-03-07] MEDS: NSS 1000 IV (18:30)
[2024-03-07 19:21] LABS: Glucose - Point of Care 118 mg/dl (70-99)
[2024-03-07 19:48] VITALS: BP 120/72
[2024-03-07 21:50] LABS: Glucose - Point of Care 118 mg/dl (70-99)
[2024-03-07 23:32] VITALS: BP 137/80
[2024-03-08 03:23] VITALS: BP 125/78
[2024-03-08 07:00] LABS: Hematocrit 34.3 % (37.0-47.0); Hemoglobin 11.2 g/dL (12.0-16.0); Mean Corp Hgb Conc. 32.7 g/dL (33.0-37.0); Mean Corpuscular Hgb 29.2 pg (27.0-31.0); Mean Corpuscular Volume 89.6 fL (81.0-99.0); Mean Platelet Volume 9.8 fL (7.4-10.4); Platelet Count 241 10^3/uL (130-400); Red Blood Cell Count 3.83 10^6/uL (4.20-5.40); White Blood Cell Count 5.7 10^3/uL (4.8-10.8)
[2024-03-08 07:14] LABS: Amphetamines Negative (Negative); Barbiturates Negative (Negative); Benzodiazepines Positive (Negative); Buprenorphine Negative (Negative); Cocaine Negative (Negative); Marijuana Negative (Negative); Methadone Negative (Negative); Methamphetamines Negative (Negative); Opiates Negative (Negative); Phencyclidine Negative (Negative); Tricyclic Antidepressants Negative (Negative)
--- NOTE | 2024-03-08 07:26 | PTCARENOTE ---
ECG completed last night and this morning. ECG's are in pt's chart. Notified LUIS Nelson ECG results. No new orders at this time. Plan of care ongoing.
[2024-03-08 07:30] VITALS: BP 147/95
[2024-03-08 07:30] LABS: ALT (SGPT) 11 U/L (0-35); AST (SGOT) 17 U/L (14-36); Albumin 3.3 g/dl (3.5-5.0); Alkaline Phosphatase 45 U/L (38-126); Blood Urea Nitrogen 20 mg/dl (7-17); Calcium 8.9 mg/dl (8.4-10.2); Carbon Dioxide 29 mmol/L (22-30); Chloride 103 mmol/L (98-107); Estimated Creatinine Clearance 54 ml/min; Glucose 87 mg/dl (70-99); Potassium 4.5 mmol/L (3.5-5.1); Sodium 138 mmol/L (135-145); Total Bilirubin 0.4 mg/dl (0.2-1.3); Total Protein 5.4 g/dl (6.3-8.2); eGFR > 60.00
[2024-03-08 07:53] LABS: Fentanyl, Urine Negative (Negative)
[2024-03-08] MEDS: NSS 1000 IV ×2 (07:58→18:20)
[2024-03-08] MEDS: FEOSOL 325 MG PO (09:53)
[2024-03-08] MEDS: PLENDIL EXTENDED RELEASE 5 MG PO (10:29)
[2024-03-08 11:20] VITALS: BP 152/94
[2024-03-08 11:29] LABS: Glucose - Point of Care 105 mg/dl (70-99)
--- NOTE | 2024-03-08 12:12 | CM ---
sales advisory manager reviewed patient's chart and met with patient and patient lives with spouse in a 2 story home, patient is independent with adl's and ambulation, patient drives, patient was working up until she lost her job in October. Patient has signed up
for [employer] benefits. Patient's spouse states, 'patient is the person that the family leans on for strength', patient reports that she has, 'many stressors in her life and feels she isn't strong any more.' Patient is asking for medication adjustment,
patient does not follow with a psychiatrist and her PCP is prescribing current medication.
Patient's stressors include loosing their 14 1/2 year old dog, losing her Job in October, providing care for her mother in law who is not well, and recently helping her son who has some problems.
Pharmacy: [facility]
PCP: Dr. De La Cruz
Plan; Await psychiatry recommendations.
--- NOTE | 2024-03-08 13:43 | W.PN.HOSP.TC ---
Today's Communication/Plan
-
Continue to monitor
Hold home Xanax and Celexa
Assessment / Plan
Assessment / Plan
Physical Exam
General: Not in acute distress
HEENT: Normocephalic
Respiratory: Clear to Auscultation Bilaterally
Cardiac: S1/S2 and Regular Rhythm
GI: Soft, Non Tender, Non Distended and Normal Bowel Sounds
Musculoskeletal: No Cyanosis and No Edema
Skin: Warm. Dry.
Neuro: Nonfocal/grossly intact
Psych: Calm, Depressed and Other (flat affect )
Assessment/Plan
Intentional overdose of unknown quantity of Xanax, Celexa, Temazepam: First attempted suicide by overdose
Resolved Lethargy - transient toxic encephalopathy due to overdose as above
Hemodynamically stable
Of Note: - She has been depressed since October 2023, reports still feeling very low, reports no regrets of intentional OD, reports compliance with Celexa
- UDS positive for benzodiazepines
- Hold Celexa and Xanax
- EKG with acceptable QTc
- Supportive care
- 1 to 1
- Crisis and Psych consulted upon admission by ER attd
Additional Medical History
HX BPPV
HX diverticulosis
HX endometriosis: s/p hysterectomy
-Does patient actually take protonix at home?
DVT Px: LMWH
Code: Full
Anticipated Discharge: > 48 hours
Subjective/Interval History
-
Date of Service: March 08, 2024
Patient was seen and examined. She reported she was doing okay this morning.
Objective Data
-
Labs:
Laboratory Results
03/08/24
05:46
WBC 5.7
Hgb 11.2 L
Hct 34.3 L
Plt Count 241
Sodium 138
Potassium 4.5
Chloride 103
Carbon Dioxide 29
BUN 20 H
Creatinine 1.0
Glucose 87
Calcium 8.9
Total Bilirubin 0.4
AST 17
ALT 11
Alkaline Phosphatase 45
Vital Signs:
Vital Signs
Temp Pulse Resp BP Pulse Ox
98.0 F 98 16 152/94 96
03/08/24 11:20 03/08/24 11:20 03/08/24 11:20 03/08/24 11:20 03/08/24 11:20
I&O
03/07/24 03/08/24 03/09/24
06:59 06:59 06:59
Intake Total 1200 / 1200
Balance 1200 / 1200
[2024-03-08 15:10] VITALS: BP 130/87
--- NOTE | 2024-03-08 16:35 | CON.MD ---
Consultation - Medical
-
63 yo F, admitted following intentional OD on xanax (25 tabs of ..25mg),, celexa (few tabs) and temazepam (3 tabs). Pt admits to taking medication impulsively in order to 'stop feeling this way' - reports feeling overwhelmed by anxiety about
multiple stressors in recent months which has contributed to feelings of depression.
Reports prior hx of anxiety with some periods of depression in the past, generally triggered by external stressors. Describes anxiety of past several months as worse than any she's had in the past, however attributes this to having more stressors
currently than she has had in the past. Husbands mother has been very ill, recently lost job due to downsizing and has not been able to find a new job, and son is going through something difficult that pt and are trying to help him with. Pt
describes experiencing racing thoughts, ruminations, overthinking, anxious distress and feeling overwhelmed. This has led to depressed mood, with associated low energy and tearfulness. Reports that the day of OD, she impulsively took the medication
due to feeling of 'it's never going to get better' (ie the anxiety) - took handful of celexa (left tablets in the bottle), remaining xanax and 3 of husbands temazepam. Did this in the morning, with home -shortly after she took the
medication, became concerned because she was excessively sleepy and he found his medication missing. Aftter confronting pt, she told him she took excessive amount of medication in order to 'sleep', at which time he then took her to ED.
Pt reports feeling regretful of OD - has never done anything like this in the past, has never had any significant SI in the past nor has ever attempted to harm or kill herself before. Does not want or other family members to worry about her
and describes feeling 'ashamed' for the impulsive behavior. Did explore this feeling of shame with her and normalized how she currently feels while encouraging to utilize this experience as part of process of emotional healing. Pt is future oriented
to working through stressors (including helping son) and not wanting to hurt family - she notes that the anxiety is the predominant distressing experience and depressed mood follows the disruption caused by anxiety. Describes palpitations as
significant symptom, which is followed by racing thoughts and feeling of overwhelm. Is currently taking Celexa 40mg and notes that it has helped significantly in the past (taking for many years, no other ssri trials) but seems to have waned in
effectiveness over the years.
Spoke to pts separately as well (Ad Carvajal [phone]) he corroborates much of the above, though did not know pt took the medication intentionally - says this is very out of character for pt and is indicative of amount of stressors
she's been trying to manage. Both he and pt are adamant about avoiding inpatient psychiatric admission if at all possible as pt has never been in that kind of environment and there is a very real risk of the experience being more traumatizing than
helpful, especially given that this attempt was impulsive and very atypical for pt. Pts works from home and is able to monitor her over next few weeks to ensure safety if she does feel worse and pt is agreeable to being more open with
in the interest of getting better. As noted pt is future oriented at this time and regretful of what happened, says she misses her home and her bed and is amenable to any recommendations made.
Past psych: celexa 40mg, no other significant hx of psychiatric tx
FH: some anxiety in family
SH: Lives with . Worked as technical clerk for many years, recently loss job due to downsizing. Has 27 yr old son who is adopted.
D&A: denies significant use
ZOHRA, unspecified depression
MSE: female, good eye contact, speech nl rate & rhythm. Mood is anxious, affect anxious & tearful at times but appropriate. Thought process linear and logical. Thought content, denies SI/HI/AVH/delusions. Memory not formally tested. AAOx3. Insight
good, judgement fair.
1. Trial of propranolol 20mg BID + daily PRN for anxiety, along with buspar 7.5mg BID - would normally not start 2 at same time but pt instructed to trial propranolol first and if no benefit to anxiety to then take the buspar. Attempting to maximize
chance of trialing something effective for anxiety so as to avoid inpatient psychiatric admission as pt notes anxiety as main disruptive and difficult sxs
2. 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
3. If anxiety is improved should be able to d/c home with clear stipulation of being close by and monitoring for safety over next few weeks
[2024-03-08] MEDS: INDERAL 20 MG PO ×2 (16:53→20:46)
[2024-03-08] MEDS: LOVENOX 40 MG SC (16:54)
[2024-03-08 18:22] LABS: Glucose - Point of Care 117 mg/dl (70-99)
[2024-03-08 19:00] VITALS: BP 144/100
[2024-03-08] MEDS: BUSPAR 7.5 MG PO (20:44)
[2024-03-08] MEDS: TYLENOL 1000 MG PO (21:20)
[2024-03-08] MEDS: MELATONIN 5 MG PO (22:46)
[2024-03-08 23:04] VITALS: BP 138/88
[2024-03-09 03:47] VITALS: BP 120/84
[2024-03-09 07:10] VITALS: BP 165/95
[2024-03-09] MEDS: FEOSOL 325 MG PO (07:46)
[2024-03-09] MEDS: INDERAL 20 MG PO (07:46)
[2024-03-09] MEDS: BUSPAR 7.5 MG PO (07:47)
[2024-03-09] MEDS: PLENDIL EXTENDED RELEASE 5 MG PO (07:47)
--- NOTE | 2024-03-09 08:40 | W.PN.HOSP.TC ---
Today's Communication/Plan
-
Give Xanax PRN
f/w psychiatry recommendations
Assessment / Plan
Assessment / Plan
Physical Exam
General: Not in acute distress
HEENT: Normocephalic
Respiratory: Clear to Auscultation Bilaterally
Cardiac: S1/S2 and Regular Rhythm
GI: Soft, Non Tender, Non Distended and Normal Bowel Sounds
Musculoskeletal: No Cyanosis and No Edema
Skin: Warm. Dry.
Neuro: Nonfocal/grossly intact, mild tremor noted
Psych: Calm, cooperative, mild anxiety
Assessment/Plan
Intentional overdose of unknown quantity of Xanax, Celexa, Temazepam: First attempted suicide by overdose
Resolved Lethargy - transient toxic encephalopathy due to overdose as above
Hemodynamically stable
Of Note: - She has been depressed since October 2023, reports still feeling very low, reports no regrets of intentional OD, reports compliance with Celexa
- UDS positive for benzodiazepines
- Held Celexa and Xanax
- Restart low dose Xanax to avoid withdrawal
- EKG with acceptable QTc
- Supportive care
- 1 to 1
- Crisis and Psych consulted upon admission by ER attd
Additional Medical History
HX BPPV
HX diverticulosis
HX endometriosis: s/p hysterectomy
-Does patient actually take protonix at home?
DVT Px: LMWH
Code: Full
Total time spent to see the patient, examine the patient on the floor, review data and lab results, discuss treatment plan with patient, nursing staff around 55 minutes
Anticipated Discharge: > 48 hours
Subjective/Interval History
-
Date of Service: March 09, 2024
No sob
No chest pain
No fevers
Objective Data
-
Vital Signs:
Vital Signs
Temp Pulse Resp BP Pulse Ox
98.1 F 78 16 165/95 97
03/09/24 07:10 03/09/24 07:10 03/09/24 07:10 03/09/24 07:46 03/09/24 07:10
I&O
03/08/24 03/09/24 03/10/24
06:59 06:59 06:59
Intake Total 1200 / 1200 2157 / 2157
Balance 1200 / 1200 2157 / 2157
--- NOTE | 2024-03-09 10:00 | CM ---
Addendum entered by Christina Dickerson 03/09/24 12:25:
Patient has been seen by psychiatry and plan is to home and follow up with outpatient psychiatry services, patient and spouse are aware, information on COBRA provided to admissions, renal case manager spoke with [facility].
Original Note:
Chart reviewed will await psychiatry recommendations on plan for patient.
Plan; Await update from psychiatry.
[2024-03-09 11:00] VITALS: BP 129/82
[2024-03-09 15:03] VITALS: BP 126/84
--- NOTE | 2024-03-09 16:47 | W.PN.UPDATE ---
Update Note
Progress Note Update
Pt seen, with present. Pt states she feels much better, less anxious after started on Propranolol 20 mg BID and Buspirone yesterday pm. Pt denies side effects. Pt denies any suicidal ideation. Affect is happy, pleasant, appropriate. Pt
able to joke. Pt and discussed pt pursuing outpatient psychiatric treatment. Pt concerned because she is on Celexa 40 mg QD at home, and today is day 2 without it. Discussed option to take 1/2 tab this afternoon, then resume usual dose
tomorrow.
Imp: Generalized anxiety d/o, S/P impulsive OD. Pt denies any further SI, appears psychiatrically stable for discharge
Rec: continue Propranolol 20 mg BID, Buspar 7.5 mg BID. Resume Celexa upon return home
Outpatient psych med mgt, therapy- when medically cleared
[2024-03-09] MEDS: LOVENOX SC (17:23)
--- NOTE | 2024-03-10 12:45 | W.DCSUMMARY ---
Discharge Summary
Discharge Data
Date of Admission: 03/07/24
Date of Discharge: 03/09/24
-
Pending Results: No
Hospital Course
63 years old female admitted to the hospital following intentional intake of Xanax, Celexa and temazepam at home. Patient reported overwhelming anxiety and stress at home. She initially intended to harm herself but later became remorseful. She
reported history of racing thoughts and anxiety. Patient was evaluated by psychiatrist. No signs of active infection. No encephalopathy. Patient did not have residual side effects from medications. Patient was lucid. She subsequently had a
pleasant affect. She was started on propranolol and buspirone therapy. She denied side effects. Psychiatrist discussed with the patient and her options for outpatient psychiatry treatment. Patient was diagnosed with generalized anxiety
disorder with impulsive behavior. She remained hemodynamically stable. Patient denied suicidal or homicidal thoughts or intentions. She was seen by case management. Psychiatrist recommended outpatient follow-up and management. Patient was
discharged in a stable condition.
Discharge Plan
-
Patient Disposition: Home (Routine Discharge)
Discharge Diagnosis/Procedures: unspecified depression/ anxiety disorder
You were seen by psychiatrist, you were started on new medications.
Diet: As tolerated
Referrals:
Shakira Alva [Active] - in two to three weeks
Hood De La Cruz MD [Family Provider] - in one to two weeks
Prescriptions:
New
buspirone 5 mg Tablet
7.5 mg PO BID Qty: 60 0RF
propranolol 20 mg Tablet
20 mg PO BID Qty: 60 0RF
Continued
felodipine 5 mg Tablet Extended Release 24 Hr
5 mg PO DAILY
pantoprazole [Protonix] 40 mg tablet,delayed release (DR/EC)
40 mg PO BID Qty: 60 0RF
alprazolam [Xanax] 0.25 mg Tablet
0.25 mg PO BIDPRN PRN (Reason: anixety)
ferrous sulfate 325 mg (65 mg iron) Tablet
325 mg PO DAILY
Trunature Probiotic tablet
PO DAILY
Patient Comments:
Pt reports 'I get it at [facility]. One tablet daily.' Pt does not know the dosage.
melatonin 10 mg tablet
10 mg PO PRN (Reason: insomnia)
Discontinued
citalopram 40 mg Tablet
40 mg PO DAILY
doxycycline hyclate 100 mg Capsule
100 mg PO BID
Patient Comments:
for 21 days starting on 02/19/24
Discharge Orders:
Discharge Patient (As Directed); Ordered 03/09/24
Ordered By: Viet Dwyer
Discharge Date and Time
Discharge Date/Time: 03/09/24 17:55
Print Language: OCCITAN
== END 2024-03-09 17:55 | disposition home or self-care (01) | DRG 917 ==
LOC: 4 WEST ACU 17:38
PROVIDERS: ADMITTING PHYSICIAN Internal Medicine; ATTENDING PHYSICIAN Internal Medicine; CONSULT PHYSICIAN Psychiatry & Neurology Psychiatry; EMERGENCY PHYSICIAN Emergency Medicine; FAMILY PHYSICIAN Family Medicine
DX: T42.4X2A Poisoning by benzodiazepines, intentional self-harm, initial encounter (principal); G92.8 Other toxic encephalopathy; F32.A Depression, unspecified; F41.1 Generalized anxiety disorder; N80.9 Endometriosis, unspecified; H81.10 Benign paroxysmal vertigo, unspecified ear; D50.9 Iron deficiency anemia, unspecified; R53.83 Other fatigue; Z88.5 Allergy status to narcotic agent; Z63.8 Other specified problems related to primary support group; Y92.009 Unspecified place in unspecified non-institutional (private) residence as the place of occurrence of the external cause; Z87.891 Personal history of nicotine dependence; Z79.899 Other long term (current) drug therapy
CPT/HCPCS: 80053; 80143; 80179; 80306; 80307; 82077; 82962; 83036; 85025; 85027; 93005; 99291

== ENCOUNTER → 2024-04-02 08:01 | Outpatient (REF) | payer BC, SELFPAY | LOC: HWWDC 08:01 | PROVIDERS: ATTENDING PHYSICIAN Obstetrics & Gynecology Gynecology; FAMILY PHYSICIAN Family Medicine | DX: Z12.31 Encounter for screening mammogram for malignant neoplasm of breast (principal) | CPT/HCPCS: 77063; 77067 ==

== ENCOUNTER 2024-10-29 12:05 | Emergency (ER) | payer BC, SELFPAY ==
[2024-10-29 12:07] VITALS: BP 135/76
[2024-10-29 12:24] LABS: % Basophils 0.6 % (0-2); % Eosinophils 3.5 % (0-6); % Immature Granulocytes 0.3 % (0-0.5); % Monocytes 5.2 % (1.7-9.3); % Neutrophils 71.4 % (42.2-75.2); Absolute Eosinophils 0.2 10^3/uL (0-0.7); Absolute Lymphocytes 1.3 10^3/uL (1.2-3.4); Absolute Monocytes 0.4 10^3/uL (0.1-0.6); Hematocrit 35.4 % (37.0-47.0); Hemoglobin 11.7 g/dL (12.0-16.0); Mean Corp Hgb Conc. 33.1 g/dL (33.0-37.0); Mean Corpuscular Hgb 30.8 pg (27.0-31.0); Mean Corpuscular Volume 93.2 fL (81.0-99.0); Mean Platelet Volume 9.7 fL (7.4-10.4); Nucleated Red Blood Cells % 0 %; Platelet Count 247 10^3/uL (130-400); Red Cell Dist. Width 14.3 % (11.5-14.5); White Blood Cell Count 6.9 10^3/uL (4.8-10.8)
[2024-10-29 12:47] LABS: ALT (SGPT) 19 U/L (0-35); AST (SGOT) 19 U/L (14-36); Albumin 3.7 g/dl (3.5-5.0); Alkaline Phosphatase 46 U/L (38-126); Blood Urea Nitrogen 26 mg/dl (7-17); Carbon Dioxide 34 mmol/L (22-30); Chloride 103 mmol/L (98-107); Glucose 149 mg/dl (70-99); Potassium 4.2 mmol/L (3.5-5.1); Sodium 141 mmol/L (135-145); Total Bilirubin 0.6 mg/dl (0.2-1.3); Total Protein 5.9 g/dl (6.3-8.2); eGFR > 60.00
[2024-10-29 14:36] VITALS: BP 149/91
--- NOTE | 2024-10-29 14:36 | ED.GENMED ---
History of Present Illness
General
Chief Complaint: Musculo-Skeletal Complaint
Source: patient and spouse
Time Seen by Provider: 10/29/24 14:17
History of Present Illness
History of Present Illness:
64-year-old female with past medical history of hypertension, chronic anemia, anxiety and depression presenting to the ER for evaluation after she was at [facility] for evaluation of 2 months of left-sided hip/leg pain when she had an urge to go to the
bathroom and while in the bathroom states she became clammy and felt near syncopal which she states happens to her from time to time calling these attacks 'a diverticulitis attack', upon getting up and out of the bathroom patient reportedly looked
pale and nursing staff at [facility] felt patient might pass out so sat her in a chair and gave her some water, patient states she had no other symptoms. She notes multiple episodes of similar stating it is usually caused by greasy foods or large
quantities of pasta and that today's episode was exactly the same as previous episodes she has had before. She denies any chest pain, headaches, visual changes, focal weakness or numbness or any other concerns. As far as her left leg pain goes she
states that it started 2 months more so in the left upper part of her hip and radiates down her leg into her left foot. No new symptoms or traumatic injuries today. Patient states she has a hard time with NSAIDs due to her GI issues and Tylenol
does not seem to be helping.
Past History
Past History
ED Past Medical History: Psychiatric (Anxiety, depression)
ED Past Surgical History: Appendectomy, Gynecological and Other (Rhinoplasty)
Social History
Tobacco: Non-smoker
Alcohol: None
Drug: None
Personal:
Living: with family
Employment: Not employed (Recently laid off)
Family History
Family History: Other
Review of Systems
Review of Systems
All Other Systems: ROS reviewed and negative except as documented in HPI and ROS
Phy Exam
Physical Exam
Physical Exam:
GENERAL: Alert , in no apparent distress
EYE: conjunctiva clear
NECK: Supple
ENT: o/p clr, mmm.
CARDIAC: Regular rate and rhythm
LUNGS: Clear breath sounds bilaterally, no acute respiratory distress, no wheezes/rales/rhonchi
ABDOMEN: Soft and without any focal tenderness, normoactive bowel sounds
NEUROLOGICAL: Alert and oriented
SKIN: Warm and dry, skin intact.
MUSCULOSKELETAL: well perfused.
PSYCH: Normal and appropriate interaction.
Scores
Heart Failure Risk
Heart Failure Risk Score: Not Applicable
Heart Score for Chest Pain Patients
STEMI patient?: Not applicable
Withdrawal Assessment of Alcohol
Withdrawal Assessment Completed?: Not applicable
Course
Orders/Labs/Results
Orders:
Orders
10/29/24 12:18
Complete Blood Count/With Diff Urgent
Comprehensive Metabolic Panel Urgent
10/29/24 14:19
Electrocardiogram (*1) Urgent
Reason for Study: Syncope
EKG- Treatment ONCE
Abnormal Lab Results
10/29/24
12:18
RBC 3.80 L 10^6/uL
(4.20-5.40)
Hgb 11.7 L g/dL
(12.0-16.0)
Hct 35.4 L %
(37.0-47.0)
Lymphocytes % 19.0 L %
(20.5-51.1)
Carbon Dioxide 34 H mmol/L
(22-30)
BUN 26 H mg/dl
(7-17)
Glucose 149 H mg/dl
(70-99)
Total Protein 5.9 L g/dl
(6.3-8.2)
10/29/24 12:18
10/29/24 12:18
Vital Signs
Initial and Last Documented VS:
Initial Vital Signs
Temp Pulse Resp BP Pulse Ox
97.9 F 69 16 135/76 97
10/29/24 12:07 10/29/24 12:07 10/29/24 12:07 10/29/24 12:07 10/29/24 12:07
Last Documented Vital Signs
Temp Pulse Resp BP Pulse Ox
97.9 F 69 18 149/91 96
10/29/24 12:07 10/29/24 14:36 10/29/24 14:36 10/29/24 14:36 10/29/24 14:36
MDM/Problems Addressed
Differential Diagnosis Includes:
Near syncope/vagal event, I do not have concern for cardiogenic syncope, electrolyte derangement, dehydration
For patient's left leg pain I do not suspect fracture, DVT considered, tendinitis, bursitis, sciatica
MDM/Problems Addressed:
64-year-old female presenting to the ER for evaluation after a near syncopal event while at a orthopedic appointment today. History of similar. Patient overall states she is not very concerned about the near syncopal event. Patient's biggest
concern seems to be getting some pain relief for her left leg pain as she was unable to be seen at the orthopedic office. Discussed multiple different medication options and patient would like to trial gabapentin. EKG ordered which is a normal
sinus rhythm with a PVC but no interval disturbance or ischemic changes. Labs did reveal a mildly elevated BUN, encouraged p.o. hydration. I did offer ultrasound to rule out DVT however patient declines. At this time patient is otherwise stable
for discharge home and continued outpatient management.
*Pulse Oximetry
Patient hypoxic: no
*Critical Care Note
Total Time (30-74mins, 75-104mins- exclusive of procedures): Not Applicable
ED Attending Note
-
Portions of this chart may have been created with voice recognition software.� Occasional wrong word or��sound alike� substitutions may have occurred due to the inherent limitations of voice recognition software.
Discharge Plan
Departure
Patient Disposition: Home (Routine Discharge)
Date of Disposition: 10/29/24
Time of Disposition: 14:36
Patient with high blood pressure during this ER visit?: Yes
Discharge Problem:
Near syncope, Left leg pain
Instructions: Near Fainting (DC)
Prescriptions:
New
gabapentin 300 mg capsule
300 mg PO DAILY Qty: 20 0RF
No Action
felodipine 5 mg Tablet Extended Release 24 Hr
5 mg PO DAILY
pantoprazole [Protonix] 40 mg tablet,delayed release (DR/EC)
40 mg PO BID Qty: 60 0RF
alprazolam [Xanax] 0.25 mg Tablet
0.25 mg PO BIDPRN PRN (Reason: anixety)
ferrous sulfate 325 mg (65 mg iron) Tablet
325 mg PO DAILY
Trunature Probiotic tablet
PO DAILY
Patient Comments:
Pt reports 'I get it at [facility]. One tablet daily.' Pt does not know the dosage.
melatonin 10 mg tablet
10 mg PO PRN (Reason: insomnia)
buspirone 5 mg Tablet
7.5 mg PO BID Qty: 60 0RF
propranolol 20 mg Tablet
20 mg PO BID Qty: 60 0RF
Interventions
Interventions:
*Risk Screen - Suicide Last Done: 10/29/24 12:07
*General Assessment Last Done: 10/29/24 12:07
*Neglect/Abuse Screening Last Done: 10/29/24 14:36
*ED- Fall Risk Assessment Last Done: 10/29/24 14:36
*ED COVID-19 Vaccine History Last Done: 10/29/24 12:07
Discharge Date and Time
Print Language: BHUTANESE
== END 2024-10-29 15:24 | disposition home or self-care (01) ==
LOC: EMR 12:05
PROVIDERS: Emergency Medicine; EMERGENCY PHYSICIAN Emergency Medicine; FAMILY PHYSICIAN Family Medicine
DX: R55 Syncope and collapse (principal); M79.605 Pain in left leg; I10 Essential (primary) hypertension; I49.3 Ventricular premature depolarization; Z86.2 Personal history of diseases of the blood and blood-forming organs and certain disorders involving the immune mechanism
CPT/HCPCS: 99284; 80053; 85025; 93005

== ENCOUNTER → 2025-03-01 11:42 | Outpatient (REF) | payer BC, SELFPAY | LOC: HWRAD 11:42 | PROVIDERS: ATTENDING PHYSICIAN Family Medicine | DX: R76.11 Nonspecific reaction to tuberculin skin test without active tuberculosis (principal) | CPT/HCPCS: 71046 ==

== ENCOUNTER → 2025-04-14 13:17 | Outpatient (REF) | payer BC, SELFPAY | LOC: WDC 13:17 | PROVIDERS: ATTENDING PHYSICIAN Family Medicine | DX: Z12.39 Encounter for other screening for malignant neoplasm of breast (principal); Z12.31 Encounter for screening mammogram for malignant neoplasm of breast | CPT/HCPCS: 77063; 77067 ==